=== PATIENT | female | born 1985 | race Caucasian/White ===

== ENCOUNTER 2018-04-07 00:01 | Inpatient (IN) | payer OTHER ==
[~2018-04-07] VITALS: Ht 165.1 cm; Wt 86.0 kg
[2018-04-07] MEDS ORDERED: VITAFOL-OB+DHA1 EACH PO (00:53)
[2018-04-07] MEDS ORDERED: LEVOTHYROXINE50 MCG PO (00:53)
--- NOTE | 2018-04-07 08:21 | PR ---
[facility] [address] [facility] [place], [place] [address] Signed Progress Notes IP Datetime Report Generated by CPN: 04/07/2018 08:21 PROGRESS NOTES: [id number] Impression: Normal progression of labor; Reassuring heart rate Plan: Continue present management; Anesthesia consult VITAL SIGNS: [id number] Vital Signs: Reviewed; Within Normal Limits EXAM: [id number] Dilatation: 4.0 Effacement: 80 Station: -2 Uterine Contractions: q 3-4 mintes MEMBRANES: [id number] Pooling: Positive Membrane Status: Ruptured Amniotic Fluid Color: Clear ROM Note: Pelvic exam per RN Comments: Pt comfortable w/ epidural. FHR reassuring. Continue expectant management. Fetus A: [id number] FHR Baseline: 140 Variability: Moderate 6-25bpm Accelerations: 15X15 Decelerations: None FHR Category: Category I Presentation: Vertex Comments on Fetus A: No evidence of metabolic acidosis Fetus B: [id number] Signing Physician: Demetrio Chen DO Copies: ~ *Electronically Signed* 04/07/18 0821 DEMETRIO CHEN DO PATIENT NAME: DIANA PEOPLES PROGRESS NOTE DATE OF : 89 PHYSICIAN: DEMETRIO CHEN DO RPT #: [id number] REPORT IS CONFIDENTIAL AND NOT TO BE RELEASED WITHOUT AUTHORIZATION
--- NOTE | 2018-04-07 10:40 | PR ---
[facility] [facility] [address] [place], [place] [address] Signed Progress Notes IP Datetime Report Generated by CPN: 04/07/2018 10:40 PROGRESS NOTES: [id number] Impression: Normal progression of labor; Reassuring heart rate Plan: Continue present management VITAL SIGNS: [id number] Vital Signs: Reviewed; Within Normal Limits EXAM: [id number] Dilatation: 5.0 Effacement: 80 Station: -2 Uterine Contractions: q4-7 minutes MEMBRANES: [id number] Pooling: Positive Membrane Status: Ruptured Amniotic Fluid Color: Clear ROM Note: Pelvic exam per RN Comments: Pt seen and evaluated. Doing well. Comfortable w/ epidural. Reviewed course of labor. Will check cervix in _30 minutes; if no significant cervical change, will consider augmentation w/ pitocin. Pt understands and agrees. Fetus A: [id number] FHR Baseline: 130 Variability: Moderate 6-25bpm Accelerations: 15X15 Decelerations: None FHR Category: Category I Presentation: Vertex Comments on Fetus A: No evidence of metabolic acidosis Fetus B: [id number] Signing Physician: Demetrio Chen DO Copies: ~ *Electronically Signed* 04/07/18 1040 DEMETRIO CHEN DO PATIENT NAME: KALLIE KEITADIANAARET PROGRESS NOTE DATE OF : 89 PHYSICIAN: DEMETRIO CHEN DO RPT #: [id number] REPORT IS CONFIDENTIAL AND NOT TO BE RELEASED WITHOUT AUTHORIZATION
--- NOTE | 2018-04-07 13:02 | PR ---
[facility] [address] [place], [place] [address] Signed Progress Notes IP Datetime Report Generated by CPN: 04/07/2018 13:02 PROGRESS NOTES: [id number] Impression: Normal progression of labor; Reassuring heart rate Plan: Continue present management; Augmentation Informed Consent Obtain: Vaginal Delivery VITAL SIGNS: [id number] Vital Signs: Reviewed; Within Normal Limits EXAM: [id number] Dilatation: 6.5 Effacement: 85 Station: -2 Uterine Contractions: q2-4 minutes MEMBRANES: [id number] Pooling: Positive Membrane Status: Ruptured Amniotic Fluid Color: Clear ROM Note: Pelvic exam per RN Comments: Pt seen and examined. Doing well. Comfortable w/ CTXs. Pitocin @ 1.3mU. Occasional variables with moderate variability, quick return to baseline, and accels. Reviewed variable decels w/ pt and family. All questions answered. Continue pitocin augmentation Fetus A: [id number] FHR Baseline: 140 Variability: Moderate 6-25bpm Accelerations: 15X15 Decelerations: Variable FHR Category: Category II Presentation: Vertex Comments on Fetus A: No evidence of metabolic acidosis Fetus B: [id number] Signing Physician: Demetrio Chen DO Copies: ~ *Electronically Signed* 04/07/18 1301 DEMETRIO CHEN DO PATIENT NAME: KALLIE KEITADIANA PROGRESS NOTE DATE OF : 89 PHYSICIAN: DEMETRIO CHEN DO RPT #: [id number] REPORT IS CONFIDENTIAL AND NOT TO BE RELEASED WITHOUT AUTHORIZATION
--- NOTE | 2018-04-08 09:45 | PR ---
[facility] [address] [facility] [place], [place] [address] Signed PP Progress Notes Datetime Report Generated by CPN: 04/08/2018 09:45 SUBJECTIVE: [id number] Pain: Within normal limits Nausea/Vomiting: Denies Flatus: Yes Bowel Movement: Yes Vital Signs: [id number] Vital Signs: Reviewed; Within Normal Limits EXAM: [id number] Cardiovascular: Normal Respiratory: Normal Abdomen/Uterus: Normal Lochia: Not Done Vulva/Perineum: Not Done Breasts: Not Done CVA Tenderness: Normal Extremities: Normal Incision: Not Applicable Progress: Not Applicable Exam Comments: Fundus firm U-2 nontender IMPRESSION/PLAN/PROCEDURES: [id number] Impression: Normal progression Plan: Discharge Progress Notes: Pt seen and examined. Doing well. Ambulating, voiding, and tolerating full diet. Pain and lochia minimal. Not . No fevers / chills / other complaints. Desires d/c home today. Reviewed pp care and discharge instructions in detail. Planning OCPs @ 6 wks pp. No other questions or concerns. Signing Physician: Demetrio Chen DO Copies: ~ *Electronically Signed* 04/08/18 0945 DEMETRIO CHEN DO PATIENT NAME: KALLIE KEITADIANA MERT PROGRESS NOTE DATE OF : 89 PHYSICIAN: DEMETRIO CHEN DO RPT #: [id number] REPORT IS CONFIDENTIAL AND NOT TO BE RELEASED WITHOUT AUTHORIZATION
== END 2018-04-08 13:00 | disposition home or self-care (01) | DRG 807 ==
LOC: FBC 00:01 → MS 20:41 → FBC 20:52
PROVIDERS: ADMIT Obstetrics & Gynecology
PROC: 10E0XZZ Delivery of Products of Conception, External Approach (ICD-10-PCS; principal; 2018-04-07)
PROC: 0HQ9XZZ Repair Perineum Skin, External Approach (ICD-10-PCS; 2018-04-07)
PROC: 00HU33Z Insertion of Infusion Device into Spinal Canal, Percutaneous Approach (ICD-10-PCS; 2018-04-07)
PROC: 3E0R3BZ Introduction of Anesthetic Agent into Spinal Canal, Percutaneous Approach (ICD-10-PCS; 2018-04-07)
DX: O70.0 First degree perineal laceration during delivery (principal); Z37.0 Single live birth; Z3A.40 40 weeks gestation of pregnancy; O76 Abnormality in fetal heart rate and rhythm complicating labor and delivery; O69.1XX0 Labor and delivery complicated by cord around neck, with compression, not applicable or unspecified; O77.0 Labor and delivery complicated by meconium in amniotic fluid; O99.284 Endocrine, nutritional and metabolic diseases complicating childbirth; E02 Subclinical iodine-deficiency hypothyroidism; Z79.899 Other long term (current) drug therapy; Z88.8 Allergy status to other drugs, medicaments and biological substances; Z86.19 Personal history of other infectious and parasitic diseases
CPT/HCPCS: 01960; 36415; 85027; J2405; J2590; J7120